=== PATIENT | male | born 1950 | race Caucasian/White ===

== ENCOUNTER → 2021-03-04 15:38 | Outpatient (CLI) | payer MEDICARE, OTHER, SELFPAY ==
--- NOTE | 2021-03-04 15:46 | CT_ITS ---
PROCEDURE: CT ABDOMEN PELVIS WO CON CLINICAL INDICATION: UMBILLICAL PAIN, NAUSEA, URINARY FREQUENCY COMPARISON: No exams were available for comparison TECHNIQUE: Axial images obtained with sagittal and coronal reformats. All CT scans at the facility use one or more dose reduction, viz: automated exposure control, ma/kV adjustment per patient size (including targeted exams where dose is matched to indication, i.e. head), or iterative reconstruction technique. FINDINGS: LOWER THORAX: There is mild thickening of the pericardium anteriorly consistent with small pericardial effusion at 8 mm in thickness. ABDOMEN & PELVIS: The liver, spleen, and adrenal glands have an unremarkable appearance. There is a 3 cm gas containing structure with an air-fluid level in the region the head of the pancreas inferiorly. This may represent a duodenal diverticulum. An abscess could have a similar appearance. There is no evidence of stranding of the peripancreatic fat. There is a gallstone present within the contracted gallbladder. There is severe bilateral hydronephrosis and hydroureter.. The urinary bladder is distended with several bladder diverticula noted. The prostate and seminal vesicles are enlarged. There does appear to be an extension of the prostate into the base of the urinary bladder. Prostate neoplasm should be considered. The prostate measures 8 cm in AP dimension and 5.8 cm transverse the. Soft tissue density is present in the base of the urinary bladder measuring 4 by 2 by 3.5 cm. This is contiguous with the enlarged prostate suspicious for neoplasm. No intestinal obstruction or free air is evident. No evidence of appendicitis. There is extensive colonic diverticulosis. No evidence of diverticulitis. No bony lytic or blastic changes. There is grade 1 spondylitic spondylolisthesis of L5 on S1. Prior vasectomy. IMPRESSION: 1. Enlarged prostate and seminal vesicles. Enlarged prostate is contiguous with a mass projecting into the base of the urinary bladder. These findings are consistent with prostate cancer with bladder invasion. Also suspected extension into the seminal vesicles. No blastic metastatic foci apparent. Alternatively, this could be related to severe benign prostatic hypertrophy with a bladder cancer adjacent to the enlarged prostate. 2. Bladder outlet obstruction with distended urinary bladder with multiple diverticula with severe bilateral hydroureteronephrosis. 3. Colonic diverticulosis. No evidence of diverticulitis. 4. Gas containing structure in the head of the pancreas which may be due to a duodenal diverticulum with an air-fluid level in the diverticulum. An abscess in the pancreatic head would be included in the differential diagnosis. There is no stranding however of the peripancreatic fat. 5. Cholelithiasis Dictated by: Dionicio Field MD 03/04/2021 16:33 Dionicio Field MD in [place] 03/04/2021 16:33
[2021-03-04 16:01] LABS: Basophils # 0.1 K/mm3 (0-0.2); Basophils % 0.7 % (0.1-2.0); Eosinophils # 0.1 K/mm3 (0.0-0.4); Eosinophils % 1.3 % (0.1-12.0); Hematocrit 34.4 % (42.0-52.0); Lymphocytes # 1.3 K/mm3 (0.7-4.5); Lymphocytes % 14.7 % (10-50); Mean Corpuscular Hemoglobin 33.2 pg (27.0-31.2); Mean Corpuscular Volume 94.6 fl (80-94); Mean Platelet Volume 9.2 fl (7.4-10.4); Monocytes # 0.5 K/mm3 (0.1-1.0); Monocytes % 5.3 % (1.7-9.3); Neutrophils # 6.7 K/mm3 (1.8-7.8); Platelet Count 223 K/mm3 (142-424); Red Blood Count 3.63 M/mm3 (4.60-6.20); Red Cell Distribution Width 12.7 % (11.5-17.5); White Blood Count 8.6 K/mm3 (4.8-10.8)
[2021-03-04 16:11] LABS: Alanine Aminotransferase 15 U/L (12-78); Albumin Level 4.1 g/dl (3.5-5.0); Albumin/Globulin Ratio 1.5 (1.1-1.8); Alkaline Phosphatase 67 U/L (38-126); Amylase 77 U/L (30-110); Anion Gap 11.9 mEq/L (5-15); Aspartate Amino Transferase 29 U/L (17-59); Bilirubin,Total 0.6 mg/dl (0.2-1.3); Blood Urea Nitrogen 53 mg/dl (9-20); Calcium 8.8 mg/dl (8.4-10.2); Carbon Dioxide 28 mmol/L (22.0-30.0); Chloride 106 mmol/L (98-107); Estimated Glomerular Filt Rate 22 ml/min (>60); GFR (African American) 26 ML/MIN (>60); Globulin 2.7 g/dL (1.3-3.2); Glucose 96 mg/dl (74-100); Potassium 4.9 mmoL/L (3.5-5.1); Sodium 141 mmol/L (136-145); Total Protein,Serum 6.8 g/dl (6.3-8.2)
[2021-03-04 18:16] LABS: Prostate Specific Ag, Diagnost 1.45 ng/ml (0.0-4.0)
== END ==
PROVIDERS: PCP Internal Medicine; Visit Provider Internal Medicine
DX: R32 Unspecified urinary incontinence (principal); N40.0 Benign prostatic hyperplasia without lower urinary tract symptoms
CPT/HCPCS: 74176; 80053; 82150; 84153; 85025

== ENCOUNTER 2021-03-04 17:05 | Outpatient (CLI) | payer MEDICARE, OTHER, SELFPAY | END 2021-03-04 17:46 | disposition home or self-care (01) | LOC: INF 17:11 | PROVIDERS: PCP Internal Medicine; Visit Provider Internal Medicine | DX: N40.1 Benign prostatic hyperplasia with lower urinary tract symptoms (principal); N32.0 Bladder-neck obstruction | CPT/HCPCS: 74176; 80053; 82150; 84153; 85025; G0463 ==

== ENCOUNTER → 2021-03-14 10:02 | Outpatient (CLI) | payer MEDICARE, OTHER, SELFPAY ==
[2021-03-14 10:11] LABS: Coronavirus 19, PCR Not Detected (NotDetected); Influenza A, PCR Not Detected (NotDetected); Influenza B, PCR Not Detected (NotDetected); MANUAL DIFFERENTIAL MANUAL DIFFERENTIAL (MANUAL DIFF)
[2021-03-14 10:28] LABS: Basophils # 0.1 K/mm3 (0-0.2); Basophils % 0.7 % (0.1-2.0); Eosinophils # 0.2 K/mm3 (0.0-0.4); Eosinophils % 2.5 % (0.1-12.0); Hematocrit 37.2 % (42.0-52.0); Lymphocytes # 1.5 K/mm3 (0.7-4.5); Lymphocytes % 18.2 % (10-50); Mean Corpuscular Hemoglobin 32.3 pg (27.0-31.2); Mean Corpuscular Volume 92.4 fl (80-94); Mean Platelet Volume 8.4 fl (7.4-10.4); Monocytes # 0.5 K/mm3 (0.1-1.0); Monocytes % 5.6 % (1.7-9.3); Neutrophils # 6.1 K/mm3 (1.8-7.8); Platelet Count 322 K/mm3 (142-424); Red Blood Count 4.02 M/mm3 (4.60-6.20); Red Cell Distribution Width 12.7 % (11.5-17.5); White Blood Count 8.3 K/mm3 (4.8-10.8)
[2021-03-14 10:32] LABS: Chloride 103 mmol/L (98-107)
[2021-03-14 10:33] LABS: Potassium 4.6 mmoL/L (3.5-5.1); Sodium 141 mmol/L (136-145)
[2021-03-14 10:35] LABS: Blood Urea Nitrogen 36 mg/dl (9-20); Estimated Glomerular Filt Rate 37 ml/min (>60); GFR (African American) 45 ML/MIN (>60)
[2021-03-14 10:36] LABS: Anion Gap 12.6 mEq/L (5-15); Calcium 10.3 mg/dl (8.4-10.2); Carbon Dioxide 30 mmol/L (22.0-30.0); Glucose 126 mg/dl (74-100)
[2021-03-14 10:56] LABS: Eosinophils % 3 % (0-3); Lymphocytes % 24 % (10-50); Monocytes % 10 % (2-9); Neutrophils % 63 % (42-76); Platelet Estimate Normal; RBC Morphology Normal; Total Cells Counted 100
== END ==
PROVIDERS: Visit Provider Urology
DX: N13.8 Other obstructive and reflux uropathy (principal); N40.1 Benign prostatic hyperplasia with lower urinary tract symptoms; R39.15 Urgency of urination
CPT/HCPCS: 36415; 80048; 85007; 85014; 85018; 85048; 85049; C9803; U0003; U0005

== ENCOUNTER 2021-03-14 10:19 | Day surgery (SDC) | payer MEDICARE, OTHER, SELFPAY ==
[2021-03-08 11:48] VITALS: BMI 26.9
[2021-03-14 11:00] VITALS: BP 155/71; PULSE 80; RESP 18; TEMP 36.7; O2SAT 99
--- NOTE | 2021-03-14 11:14 | SUR.PREOP ---
PT DOESN'T WANT IV STARTED UNTIL 12:00, DOESN'T LIKE IV'S AND SAYS DOESN'T UNDERSTAND WHY WE HAVE TO PUT THEM IN SO EARLY. PLAN TO START IV AT 12 PER PT WISHES.
--- NOTE | 2021-03-14 12:35 | HMH.ANESCL ---
[facility] Anesthesia Checklist - Patient Identification Patient Identification: Arm Band - Structural Data Admitted From: Home Planned Operative Procedure/s: Cystoscopy Consent for Planned Operative Procedure(s) Verified: Yes - NPO Status Verified Time NPO: 00:00 - Additional verifications Anesthesia Reactions: No Hx Blood Transfusions: No Blood Transfusion Reaction: No - Airway Assessment C-Spine Mobility Assessed: Yes TMJ Mobility Assessed: Yes Dentition: Good Dentition - Neurological Assessment Level of Consciousness: Awake Hx Seizures: No Numbness or tingling in extremities: No - Anesthesia Plan Anesthesia Risk discussed: Yes Anesthesia Plan: Verified ASA Class: II Anesthesia Type: MAC [facility] History I have reviewed the patient's past medical history: Yes Medical History: Reports:: Hypertension Denies:: Cancer, Diabetes Mellitus Type 1, Diabetes Mellitus Type 2, Internal Pacemaker, MRSA, Seizures *Have you ever received a pneumonia vaccine?: No *Have you received a flu vaccine this season?: No Other Medical History: Denies: Blood Transfusion Reaction Anesthesia experience/problems:: None Laterality Cases: Right: Arthroscopy Knee, Arthroscopy Shoulder Other Surgeries: Yes: No Previous Surgery, Colonoscopy. No: Pacemaker Amputation: No Fractures: No - *Social History Last grade of school completed: Advanced degree Smoking Status: Never smoker Alcohol Intake: current Alcohol Intake Frequency:: holidays/special occasions only Substance Use Type: denies use *Occupational Status:: retired Housing: house Household Members: none *Travel in the last 8 weeks: None Family Hx:: Other
[2021-03-14 13:21] VITALS: BP 80/50; PULSE 56; RESP 14; TEMP 36.6; O2SAT 98
[2021-03-14 13:30] VITALS: BP 92/55; PULSE 61; RESP 18; O2SAT 96
[2021-03-14 13:45] VITALS: BP 125/68; PULSE 64; RESP 18; O2SAT 97
[2021-03-14 14:05] VITALS: BP 136/62; PULSE 62; RESP 18; TEMP 36.2; O2SAT 96
--- NOTE | 2021-03-14 14:55 | SUR.OPER ---
indwelling catheter removed by RN and discarded prior to prep for procedure without complication, new 18 irish coude hogan catheter with leg bag inserted by MD at completion of procedure
--- NOTE | 2021-03-29 16:19 | P.OP_ITS ---
Date of procedure: 03/29/21 Pre-op Diagnosis:: BPH with urinary obstruction Post-op Diagnosis:: BPH with urinary obstruction Procedure performed:: Cystourethroscopy, transrectal ultrasound Surgeon:: Haris Taylor MD CAREER DISCOVERY TEACHER:: Cande Grace Anesthesia: MAC Estimated blood loss (mL): 0 Clinical Note:: 70-year-old white male with urinary retention. CT scan has shown a markedly enlarged prostate with bladder outlet obstructive changes as well as bilateral hydroureteronephrosis. Creatinine is 2.8 which has improved to 1.8 with catheter drainage. Operative findings:: Patient with trilobar hyperplasia and large median lobe. There are chronic bladder outlet obstructive changes such as severe trabeculation, cellules and bl adder diverticula. Operative note:: Patient taken to the operating room after informed consent was obtained. He was placed on the operating room table in the supine position and monitored anesthesia care was administered. His Baptiste catheter was removed. He was then placed into the dorsal lithotomy position and prepped and draped in the standard surgical fashion. Preoperative antibiotics and sequential compression devices were placed. The 22 [place] Island[place] cystoscope passed into the urethral meatus and into the prostatic urethra which showed trilobar hyperplasia. A very large median lobe was noted. The bladder was examined in a systematic fashion. There was severe trabeculation with cellule formation as well as a small diverticulum at the base of the bladder. The prostate bled easily. The ureteral orifices were obscured by the large median lobe. There was no evidence of bladder tumors. The cystoscope then removed and an 18 [place] Islander Baptiste catheter was placed. The transrectal ultrasound probe was then placed into the rectum and the prostate was measured at 60 cm?. The probe then removed. Patient tolerated the procedure well and there were no complications. Condition: stable Disposition: same day Specimens:: None Complications:: None
== END 2021-03-14 14:10 | disposition home or self-care (01) ==
LOC: OR 10:21
PROVIDERS: PCP Internal Medicine; Visit Provider Urology
PROC: 0TJB8ZZ Inspection of Bladder, Via Natural or Artificial Opening Endoscopic (ICD-10-PCS; CPT 52000; principal; 2021-03-14 12:30)
DX: N40.1 Benign prostatic hyperplasia with lower urinary tract symptoms (principal); N32.3 Diverticulum of bladder; I10 Essential (primary) hypertension; Z79.899 Other long term (current) drug therapy
CPT/HCPCS: 52000; 76872; 36415; 80048; 85007; 85014; 85018; 85048; 85049; 96374; C9803; U0003; U0005

== ENCOUNTER 2021-03-21 14:10 | Observation (INO) | payer MEDICARE, OTHER, SELFPAY ==
--- NOTE | 2021-03-14 17:03 | HMH.OPNOTE ---
Date of procedure: 03/14/21 Pre-op Diagnosis:: BPH with urinary obstruction Post-op Diagnosis:: BPH with urinary obstruction Procedure performed:: Cystourethroscopy, transrectal ultrasound Surgeon:: Haris Taylor MD CRM FUNCTIONAL ANALYST:: Cande Grace Anesthesia: MAC Estimated blood loss (mL): 0 Clinical Note:: 70-year-old white male with urinary retention. CT scan has shown markedly enlarged prostate with bladder outlet obstructive changes. Lab work show a creatinine of 2.8 which has improved to 1.8 with catheter drainage. Operative findings:: Patient with trilobar hyperplasia and large median lobe. There are chronic bladder outlet obstructive changes trabeculation bladder diverticula present. Operative note:: Patient taken to the operating room after informed consent was obtained. Was placed on the operating table in the supine position and monitored anesthesia care was administered. His current Baptiste catheter was removed. Then placed into the dorsal lithotomy position and prepped and draped in the standard surgical fashion. Preoperative antibiotics and sequential compression devices placed. 22 Indonesian cystoscope passed into the urethral meatus into the prostatic urethra which showed trilobar hyperplasia. Large median lobe was noted. Bladder was examined in a systematic fashion. There was severe trabeculation with cellule formation as well as a small diverticulum at the base of the bladder. There was easy bleeding from the prostatic urethra. The ureteral orifices were obscured by the large median lobe. There is no evidence of bladder tumors. Scope then removed and an 18 Indonesian Baptiste catheter was replaced. The transrectal ultrasound probe was then placed into the rectum the prostate was measured at 60 cm?. The probe then removed. Patient tolerated procedure well there are no complications. We discussed the findings after he recovered and we will schedule a transurethral resection of prostate at his earliest convenience. Condition: stable Disposition: same day Specimens:: None Complications:: None
[2021-03-17 14:33] VITALS: BMI 27.6
[2021-03-21] VITALS (20 sets, daily range): BP systolic 129–165; BP diastolic 65–88; PULSE 62–79; RESP 12–18; TEMP 35.8–36.9; O2SAT 93–99; BMI 26.7
[2021-03-21 08:48] LABS: Coronavirus 19, PCR Not Detected (NotDetected); Influenza A, PCR Not Detected (NotDetected); Influenza B, PCR Not Detected (NotDetected)
[2021-03-21 09:41] LABS: Basophils # 0.1 K/mm3 (0-0.2); Basophils % 0.7 % (0.1-2.0); Eosinophils # 0.2 K/mm3 (0.0-0.4); Eosinophils % 2.3 % (0.1-12.0); Hematocrit 35.5 % (42.0-52.0); Hemoglobin 12.3 g/dL (14.1-18.0); Lymphocytes # 1.1 K/mm3 (0.7-4.5); Lymphocytes % 12.1 % (10-50); Mean Corpuscular HGB Conc 34.7 g/dL (31.8-35.4); Mean Corpuscular Hemoglobin 32.2 pg (27.0-31.2); Mean Corpuscular Volume 92.9 fl (80-94); Mean Platelet Volume 8.3 fl (7.4-10.4); Monocytes # 0.4 K/mm3 (0.1-1.0); Monocytes % 4.6 % (1.7-9.3); Neutrophils # 7.4 K/mm3 (1.8-7.8); Neutrophils % 80.3 % (37.0-80.0); Platelet Count 269 K/mm3 (142-424); Red Blood Count 3.82 M/mm3 (4.60-6.20); Red Cell Distribution Width 12.7 % (11.5-17.5); White Blood Count 9.2 K/mm3 (4.8-10.8)
[2021-03-21 09:46] LABS: Chloride 104 mmol/L (98-107)
--- NOTE | 2021-03-21 09:46 | P.PN_ITS ---
[facility] Anesthesia Checklist - Patient Identification Patient Identification: Arm Band, Verbal (Name & ) - Structural Data Admitted From: Home Planned Operative Procedure/s: TURP Consent for Planned Operative Procedure(s) Verified: Yes Verified Documents: Surgical Consent - NPO Status Verified Time NPO: 00:00 - Chart Verification Results Verified: CBC, BMP - Additional verifications Anesthesia Reactions: No Hx Blood Transfusions: No Blood Transfusion Reaction: No - Cardiovascular Assessment Heart Sounds: S1 & S2 Pulse Rhythm: Regular - Airway Assessment C-Spine Mobility Assessed: Yes TMJ Mobility Assessed: Yes Dentition: Good Dentition - Neurological Assessment Level of Consciousness: Awake, Alert, Appropriate - Anesthesia Plan Anesthesia Risk discussed: Yes ASA Class: II Anesthesia Type: General [facility] History Medical History: Reports:: BPH, Hypertension Denies:: Cancer, Diabetes Mellitus Type 1, Diabetes Mellitus Type 2, Internal Pacemaker, MRSA, Seizures *Have you ever received a pneumonia vaccine?: Yes *Have you received a flu vaccine this season?: Yes Other Medical History: Denies: Blood Transfusion Reaction Anesthesia experience/problems:: none Laterality Cases: Right: Arthroscopy Knee, Arthroscopy Shoulder Other Surgeries: Yes: No Previous Surgery, Colonoscopy. No: Pacemaker Amputation: No Fractures: No - *Social History Last grade of school completed: Advanced degree Smoking Status: Never smoker Alcohol Intake: current Alcohol Intake Frequency:: holidays/special occasions only Substance Use Type: denies use *Occupational Status:: retired Housing: house Household Members: none *Travel in the last 8 weeks: None Family Hx:: No significant family history
[2021-03-21 09:47] LABS: Potassium 4.3 mmoL/L (3.5-5.1); Sodium 141 mmol/L (136-145)
[2021-03-21 09:50] LABS: Anion Gap 12.3 mEq/L (5-15); Blood Urea Nitrogen 25 mg/dl (9-20); Calcium 9.3 mg/dl (8.4-10.2); Carbon Dioxide 29 mmol/L (22.0-30.0); Creatinine Clearance Estimated 48 mL/min (50-200); Estimated Glomerular Filt Rate 43 ml/min (>60); GFR (African American) 52 ML/MIN (>60); Glucose 112 mg/dl (74-100)
--- NOTE | 2021-03-21 13:08 | P.PN_ITS ---
[facility] Anesthesia Record Part I Intake, IV Amount: 1,000 Estimated blood loss (mL): 50 Urine output (mL): 0 Blood Pressure: 131/68 SaO2: 97 Pulse Rate: 73 Respiratory Rate: 17 Temperature: 98.5 F Patient is:: Drowsy Stable to PACU at:: 13:05
--- NOTE | 2021-03-21 14:11 | SUR.PHASEI ---
1354- [facility]6- pt left in stable condition at this time.
--- NOTE | 2021-03-21 14:26 | HMH.PHAVTE ---
[facility] Pharmacy VTE Monitoring - Patient Demographics Admission date: 03/21/21 Report Date: 03/21/21 Time: 14:26 Allergies/Adverse Reactions: Patient Allergies No Known Allergies Allergy (Unverified 03/21/21 13:16) Height: 1.7 m Weight: 79.832 kg - VTE Risk Labs: VTE Related Lab Results Hgb 12.3 g/dL (14.1-18.0) L 03/21/21 09:25 Hct 35.5 % (42.0-52.0) L 03/21/21 09:25 Plt Count 269 K/mm3 (142-424) 03/21/21 09:25 BUN 25 mg/dl (9-20) H 03/21/21 09:25 Creatinine 1.60 mg/dl (0.66-1.25) H 03/21/21 09:25 Estimated Creat Clear 48 mL/min (50-200) 03/21/21 09:25 - Prophylaxis VTE Prophylaxis Ordered?: Yes Types of VTE Prophylaxis: IPCS Thigh High Location of Applied Device: Bilateral Lower Extremeties
--- NOTE | 2021-03-21 14:26 | HMH.PHAINT ---
MEDICATION RECONCILIATION COMPLETED ON PATIENT USING EXTERNAL FILL HISTORY FROM PHARMACY. -SHAD BUSBY, DEOND
--- NOTE | 2021-03-21 16:10 | P.OP_ITS ---
Date of procedure: 03/21/21 Pre-op Diagnosis:: BPH with obstruction Post-op Diagnosis:: BPH with obstruction Procedure performed:: Transurethral resection of prostate Surgeon:: Haris Taylor MD COMMERCIAL LINES ACCOUNT MANAGER:: Other (leonarda s) Anesthesia: LMA Estimated blood loss (mL): 5 Clinical Note:: 70-year-old white male with recent urinary retention as a large prostate by CT evaluation as well as bilateral hydroureteronephrosis and renal failure due to chronic bladder outlet obstruction. We have discussed treatment options and patient presents for transurethral section of prostate today. Operative findings:: Patient with concentric prostate tissue extending into the bladder. There was a large median lobe as well as a large anterior portion of prostate tissue that protruded into the bladder lumen. There was also trilobar hyperplasia. Operative note:: Patient taken to the operating room after informed consent was obtained. He was placed on the operating room table in the supine position and general anesthesia administered. Preoperative antibiotics and sequential compression devices were placed. He was placed into the dorsal lithotomy position and prepped and draped in the standard surgical fashion. The 22 [place] passed into the urethra and the bladder examined in a systematic fashion. There was severe trabeculation with cellule formation and small diverticula present. The ureteral orifices were obscured by the large median lobe. There was a large median lobe as well as a large anterior lobe prostate protruding into the bladder. This was also true of the right and left side of the prostatic urethra and that it extended into the bladder. The cystoscope removed and our 28 [place] resectoscope sheath passed into the urethra with use of the obturator. The obturator then removed and the cystoscope passed through the sheath and resection began at the bladder neck resecting the large median lobe as well as the right and left prostatic lobes that extended into the bladder and the anterior portion of the prostate that extended into the bladder. We then turned our attention to the floor the bladder and the floor the bladder was resected back to the verumontanum. This allowed us better flow in the left side the prostate was then resected in a counterclockwise fashion back to the verumontanum. The right side the prostate was then resected in a clockwise fashion back to the VA room. Anterior prostatic tissue was resected as well back to the VA removed and the apical tissue was resected as the last stage of the TURP. Hemostasis achieved and all the prostatic chips were evacuated. A 22 [place] three-way catheter passed into the bladder with use of a catheter guide. 30 cc were placed into the balloon and continuous bladder irrigation instituted. The bladder was irrigated and there was no significant bleeding. Catheter was placed to traction on the left leg and patient transported to the recovery in stable condition. Condition: stable Disposition: PACU Specimens:: Prostate tissue Complications:: None
--- NOTE | 2021-03-21 18:59 | PC.NURSE ---
Have paged Dr. Taylor health education coordinator at this time to request pain med for pt. Pt has had norco per mar but states pain is increasing and it feels as if he needs to urinate. CBI continues.
--- NOTE | 2021-03-21 19:04 | PC.NURSE ---
Received order for belladonna suppository for bladder spasms.
[2021-03-22] VITALS: BP 125/69; PULSE 66; RESP 16; TEMP 36.6; O2SAT 96
[2021-03-22 04:00] VITALS: BP 124/68; PULSE 66; RESP 16; TEMP 36.7; O2SAT 97
--- NOTE | 2021-03-22 05:06 | PC.NURSE ---
Pt is A/O x4. CBI continues with light pink draining per hogan. Pt voiced x3 of pain, admin meds per MAR with relief. Pt's appetite has been well t/o shift with intake of cookies, jello, and soft drinks. Pt is eager to go home. SCDS remain in place on BLE. Call traore within reach.
[2021-03-22 05:11] VITALS: BMI 26.6
[2021-03-22 06:43] LABS: Basophils % 0.3 % (0.1-2.0); Eosinophils # 0.1 K/mm3 (0.0-0.4); Eosinophils % 1.6 % (0.1-12.0); Hematocrit 31.3 % (42.0-52.0); Lymphocytes # 1.2 K/mm3 (0.7-4.5); Lymphocytes % 13.6 % (10-50); Mean Corpuscular HGB Conc 33.7 g/dL (31.8-35.4); Mean Corpuscular Hemoglobin 31.8 pg (27.0-31.2); Mean Corpuscular Volume 94.3 fl (80-94); Mean Platelet Volume 8.9 fl (7.4-10.4); Monocytes # 0.5 K/mm3 (0.1-1.0); Monocytes % 5.5 % (1.7-9.3); Neutrophils % 78.9 % (37.0-80.0); Platelet Count 217 K/mm3 (142-424); Red Blood Count 3.32 M/mm3 (4.60-6.20); White Blood Count 8.9 K/mm3 (4.8-10.8)
[2021-03-22 07:09] LABS: Anion Gap 4.9 mEq/L (5-15); Blood Urea Nitrogen 20 mg/dl (9-20); Calcium 8.2 mg/dl (8.4-10.2); Carbon Dioxide 29 mmol/L (22.0-30.0); Chloride 105 mmol/L (98-107); Creatinine Clearance Estimated 48 mL/min (50-200); Estimated Glomerular Filt Rate 43 ml/min (>60); GFR (African American) 52 ML/MIN (>60); Glucose 107 mg/dl (74-100); Potassium 3.9 mmoL/L (3.5-5.1); Sodium 135 mmol/L (136-145)
[2021-03-22 07:12] VITALS: BP 131/75; PULSE 60; TEMP 36.6; O2SAT 95
[2021-03-22 07:17] LABS: Hemoglobin 10.6 g/dL (14.1-18.0)
[2021-03-22 11:57] VITALS: BP 144/74; PULSE 63; RESP 14; TEMP 36.6; O2SAT 98
--- NOTE | 2021-03-22 12:34 | P.PN_ITS ---
[facility] Anesthesia Record Part II Discharge Time: 13:55 Destination: 2nd floor PACU nurse assessment reviewed?: Yes Patient Condition:: Good Anesthesia Complications:: None none Swallowing reflex intact?: Yes Cyanosis?: No Blood Pressure: 152/80 Pulse Rate: 72 Temperature: 97.2 F Mental Status: Alert & Oriented Pain level:: 0 Nausea and/or vomitting:: None Intake, IV Amount: 0
[2021-03-22 12:36] VITALS: BP 152/80; PULSE 72; TEMP 36.2
--- NOTE | 2021-03-22 12:58 | HMH.HP ---
*Admission Date: 03/21/21 *Chief complaint: BPH with obstruction *History of present illness: Patient is a 70-year-old white male with recent urinary retention. CT scan has shown prostate enlargement with bladder diverticula as well as bilateral hydroureteronephrosis. Patient's creatinine was noted to be elevated at 2.8 prior to his Baptiste catheter. Patient has been worked up with cystoscopy and found to have trilobar hyperplasia with very large median lobe. His urinary retention has been managed with a Baptiste catheter for the last couple of weeks. His creatinine has trended down to 1.6. He presents for transurethral resection of prostate today. [facility] History Medical History: Reports:: BPH, Hypertension Denies:: Cancer, Diabetes Mellitus Type 1, Diabetes Mellitus Type 2, Internal Pacemaker, MRSA, Seizures *Have you ever received a pneumonia vaccine?: No *Have you received a flu vaccine this season?: No Other Medical History: Denies: Blood Transfusion Reaction Anesthesia experience/problems:: none Laterality Cases: Right: Arthroscopy Knee, Arthroscopy Shoulder Other Surgeries: Yes: No Previous Surgery, Colonoscopy. No: Pacemaker Amputation: No Fractures: No - *Social History Last grade of school completed: Advanced degree Smoking Status: Never smoker Alcohol Intake: never Alcohol Intake Frequency:: holidays/special occasions only Substance Use Type: denies use *Occupational Status:: retired Housing: house Household Members: none *Travel in the last 8 weeks: None Family Hx:: No significant family history Review of Systems - Review of Systems Review of systems:: pertinent systems reviewed and negative unless documented below Meds Home Medications Medication Instructions Recorded Confirmed Type finasteride 5 mg tablet 5 mg PO DAILY 03/07/21 03/21/21 History lisinopril 10 1 tab PO DAILY 03/07/21 03/22/21 History mg-hydrochlorothiazide 12.5 mg tablet tamsulosin 0.4 mg capsule 0.4 mg PO DAILY 03/07/21 03/21/21 History Aspirin [Aspirin 81mg EC Tab] 81 mg PO DAILY 03/08/21 03/21/21 History Allergies Allergy/AdvReac Type Severity Reaction Status Date / Time No Known Allergies Allergy Unverified 03/21/21 13:16 Exam Vital signs and Labs for Last 24 Hours: Temp Pulse Resp BP Pulse Ox 97.2 F L 72 14 152/80 H 98 03/22/21 12:36 03/22/21 12:36 03/22/21 11:57 03/22/21 12:36 03/22/21 11:57 Laboratory Results - last 24 hr 03/22/21 05:40: WBC 8.9, RBC 3.32 L, Hgb 10.6 L D, Hct 31.3 L, MCV 94.3 H, MCH 31.8 H, MCHC 33.7, RDW 13.0, Plt Count 217, MPV 8.9, Neut % (Auto) 78.9, Lymph % (Auto) 13.6, [place] % (Auto) 5.5, Eos % (Auto) 1.6, Baso % (Auto) 0.3, Neut # (Auto) 7.0, Lymph # (Auto) 1.2, [place] # (Auto) 0.5, Eos # (Auto) 0.1, Baso # (Auto) 0.0 03/22/21 05:40: Sodium 135 L, Potassium 3.9, Chloride 105, Carbon Dioxide 29, Anion Gap 4.9 L, BUN 20, Creatinine 1.60 H, Estimated Creat Clear 48, Estimated GFR 43 L, Est GFR ( Amer) 52 L, Glucose 107 H, Calcium 8.2 L I & O for Last 24 hours: Intake & Output 03/19/21 03/20/21 03/21/21 03/22/21 23:59 23:59 23:59 23:59 Intake Total 1060 / 1060 1580 / 1580 Output Total 5100 / 5100 6600 / 6600 Balance -4040 / -4040 -5020 / -5020 Weight 79.832 kg 79.832 kg - Constitutional no acute distress - *Routine HEENT Exam Head: Present: normocephalic Eye: Present: EOMI, PERRL ENT: Present: mucous membranes moist - *Routine Neck Exam Present: supple. Absent: lymphadenopathy - *Routine Respiratory Exam Present: CTA bilaterally - *Routine Cardiovascular Exam Present: RRR - *Routine Abdominal Exam Present: soft, normoactive bowel sounds. Absent: tenderness - *Routine Rectal Exam Rectal:: deferred - *Routine Genitalia Exam Genitalia:: deferred - *Routine Extremities Exam Absent: cyanosis, clubbing, edema - *Routine Skin Exam Present: warm. Absent: rash - *Routine Neurological Exam Present: alert, oriented X3 Assessmen
--- NOTE | 2021-03-22 13:02 | P.PN_ITS ---
Internal Medicine - PN: Subj *Date: 03/22/21 *Time: 13:02 Interval history: Postop day 1 status post TURP. His urine is blood-tinged on minimal CBI. He does state some perineal discomfort. He is tolerating diet and is afebrile. Exam Vital signs and Labs for Last 24 Hours: Temp Pulse Resp BP Pulse Ox 97.2 F L 72 14 152/80 H 98 03/22/21 12:36 03/22/21 12:36 03/22/21 11:57 03/22/21 12:36 03/22/21 11:57 Laboratory Results - last 24 hr 03/22/21 05:40: WBC 8.9, RBC 3.32 L, Hgb 10.6 L D, Hct 31.3 L, MCV 94.3 H, MCH 31.8 H, MCHC 33.7, RDW 13.0, Plt Count 217, MPV 8.9, Neut % (Auto) 78.9, Lymph % (Auto) 13.6, [place] % (Auto) 5.5, Eos % (Auto) 1.6, Baso % (Auto) 0.3, Neut # (Au to) 7.0, Lymph # (Auto) 1.2, [place] # (Auto) 0.5, Eos # (Auto) 0.1, Baso # (Auto) 0.0 03/22/21 05:40: Sodium 135 L, Potassium 3.9, Chloride 105, Carbon Dioxide 29, Anion Gap 4.9 L, BUN 20, Creatinine 1.60 H, Estimated Creat Clear 48, Estimated GFR 43 L, Est GFR ( Amer) 52 L, Glucose 107 H, Calcium 8.2 L I & O for Last 24 hours: Intake & Output 03/19/21 03/20/21 03/21/21 03/22/21 23:59 23:59 23:59 23:59 Intake Total 1060 / 1060 1580 / 1580 Output Total 5100 / 5100 6600 / 6600 Balance -4040 / -4040 -5020 / -5020 Weight 79.832 kg 79.832 kg - Constitutional no acute distress - *Routine HEENT Exam Head: Present: normocephalic Eye: Present: EOMI, PERRL ENT: Present: mucous membranes moist - *Routine Neck Exam Present: supple. Absent: lymphadenopathy - *Routine Respiratory Exam Absent: accessory muscle use - *Routine Cardiovascular Exam Absent: JVD - *Routine Abdominal Exam Present: soft. Absent: tenderness - *Routine Extremities Exam Absent: cyanosis, clubbing, edema - *Routine Skin Exam Present: warm. Absent: rash - *Routine Neurological Exam Present: alert, oriented X3 Assessment and Plan (1) BPH with obstruction/lower urinary tract symptoms Status: Acute Category: Medical Code(s): N40.1 - Benign prostatic hyperplasia with lower urinary tract symptoms; N13.8 - Other obstructive and reflux uropathy Postop day 1 status post TURP. His urine is blood-tinged off of continuous bladder irrigation he has been ambulating in the halls without difficulty. He is tolerating a diet. We discussed discharge plans and restriction of any strenuous activities. He will be discharged home with his Baptiste catheter and they will come back in 2 days for a voiding trial. Prescriptions for cefdinir and Colace given at discharge. He is also to push liberal amounts of fluids.
--- NOTE | 2021-03-22 13:31 | PC.NURSE ---
Called and spoke with Barb @ this time r/t med req not being complete.
== END 2021-03-22 14:30 | disposition home or self-care (01) ==
LOC: OR 14:10 → 2ND 14:10
PROVIDERS: Admitting Provider Urology; PCP Internal Medicine; Visit Provider Urology
PROC: 0VT08ZZ Resection of Prostate, Via Natural or Artificial Opening Endoscopic (ICD-10-PCS; CPT 52601; principal; 2021-03-21 10:30)
DX: N40.1 Benign prostatic hyperplasia with lower urinary tract symptoms (principal); N13.8 Other obstructive and reflux uropathy; N32.3 Diverticulum of bladder; R33.8 Other retention of urine; N13.39 Other hydronephrosis; N32.0 Bladder-neck obstruction; I10 Essential (primary) hypertension; Z20.822 Contact with and (suspected) exposure to COVID-19
CPT/HCPCS: 52601; G0378; 80048; 85025; 88305; 96374; C9803; J2405; U0003; U0005

== ENCOUNTER 2021-03-30 16:46 | Emergency (ER) | payer MEDICARE, OTHER, SELFPAY ==
[2021-03-30 17:20] VITALS: BP 161/98; PULSE 87; RESP 21; TEMP 36.8; O2SAT 97; BMI 26.3
[2021-03-30 17:22] LABS: Apearance,Urine Cloudy (Clear); Color,Urine Dark Yellow (Yellow)
[2021-03-30 17:23] LABS: Bilirubin,Urine Negative (Negative); Blood, Urine 3+ (Negative); Glucose,Urine (UA) Negative (Negative); Ketones,Urine Negative (Negative); Protein,Urine 3+ (Negative); UTC Leukocyte Esterase,Urine 2+ (Negative); UTC Nitrate,Urine Positive (Negative); Urobilinogen,Urine 0.2 EU/dl (0.2)
--- NOTE | 2021-03-30 17:46 | HMH.EDUTC ---
[facility] [facility] [place] Clinical Impression: UTI (urinary tract infection) Qualifiers: Urinary tract infection type: site unspecified Hematuria presence: with hematuria Qualified Code(s): N39.0 - Urinary tract infection, site not specified Disposition: Home, Self-Care Condition on Discharge: Good Instructions: Urinary Tract Infection, DI for Urinary Tract Infection (UTI), Ciprofloxacin Additional Instructions: *Increase fluids. Water not Soda or Tea *Start antibiotic immediately and be sure to take as ordered for the FULL length of time although you should start to see improvement over the next 48 hours *Pyridium as needed Remember this medication will turn your urine [place]. This is normal but it will stain what ever it gets on *You should not use Pyridium for more than 48 hours. If so , follow up with your primary physician to review urine culture and ensure that antibiotic is adequate for infection *Be SURE to follow up anytime for new or worsening symptoms with your family doctor. AND in 48 hours for urine culture results with your family doctor, if you do not have a doctor then you may call back to the [facility] for urine culture results and further treatment. We do recommend that you choose and establish care with a Primary Care Physician. AND follow up with them in 10-14 days to repeat UA to ensure infection is resolved and blood no longer present *Be sure to let your PCP know that we sent urine cultures from the [facility] so they can follow up to ensure that you area the on the correct antibiotic Call your doctor office and make appointment for 48 hours (2 days from today) to follow up and get the results of your urine culture and further treatment Prescriptions: Ciprofloxacin HCl [Cipro 500mg Tab] 500 mg PO BID 10 Days #20 tab Transmission Status: Received by [id number] Phenazopyridine HCl [Pyridium 200mg Tablet] 200 pow PO TID #6 tab Transmission Status: Received by [id number] Referrals: Alfredo Samuels [Primary Care Provider] - As needed Time of Disposition: 18:13 Medical Decision Making - Pankaj Inquiry Pt receiving controlled substance: No Pankaj was queried for this patient: No Vital Signs: 03/30/21 17:20 03/30/21 18:15 Temperature 98.2 F 98.2 F Temperature Source Oral Pulse Rate 87 Pulse Rate [Right Brachial] 87 Respiratory Rate 21 21 Blood Pressure 161/98 H Blood Pressure [Right Arm] 161/98 H Blood Pressure Mean [Right Arm] 119 Blood Pressure Source [Right Arm] Automatic Cuff Blood Pressure Position [Right Arm] Sitting 02 Sat by Pulse Oximetry 97 Oxygen Delivery Method Room Air - Lab Data Lab results reviewed: Yes: I reviewed the patient's lab results. Lab Results 03/30/21 17:17: Urine Color Dark yellow, Urine Appearance Cloudy, Urine pH 6.0, Ur Specific [place] 1.020, Urine Protein 3+, Urine Glucose (UA) Negative, Urine Ketones Negative, Urine Blood 3+, Urine Nitrate Positive A, Urine Bilirubin Negative, Urine Urobilinogen 0.2, Ur Leukocyte Esterase 2+ A Orders (Tests/Meds): ED MEDICATIONS Discontinued Medications Generic Name Dose Route Start Last Admin Trade Name Felipeq PRN Reason Stop Dose Admin Levofloxacin 500 mg 03/30/21 18:09 03/30/21 18:15 Levofloxacin 500mg Tab PO 03/30/21 18:10 500 mg ONCE ONE Administration Phenazopyridine HCl 200 mg 03/30/21 18:14 03/30/21 18:15 Phenazopyridine 200mg Tablet PO 03/30/21 18:15 200 mg ONCE ONE Administration ORDERS Category Date Time Status Urine Culture Stat Micro 03/30/21 17:00 Received Medical Decision Narrative: Medication discussed with pharmacy and looked at most recent labs [facility] still advised Cipro 500mg BID x 10 days and follow up with Urology [facility] [place] - General Stated complaint: possible UTI Time Seen by Provider: 03/30/21 17:46 Mode of Arrival: Ambulatory Source of Information: Patient Limitations: No Limitations Description of Symptoms (Re
[2021-03-30 18:15] VITALS: BP 161/98; PULSE 87; RESP 21; TEMP 36.8; O2SAT 97
== END 2021-03-30 18:21 | disposition home or self-care (01) ==
PROVIDERS: Emergency Provider Nurse Practitioner; PCP Internal Medicine
DX: N30.01 Acute cystitis with hematuria (principal)
CPT/HCPCS: G0463; 81003; 87086; 87088; 87186; 99202

== ENCOUNTER → 2021-10-06 13:27 | Outpatient (CLI) | payer MEDICARE, SELFPAY ==
--- NOTE | 2021-10-06 13:29 | CA_ITS ---
APPROVED REPORT EXAM: Comprehensive 2D, Doppler, and color-flow Echocardiogram Pharmacy Technologist: Suki Monahan RVT Ht: 5 ft 8 in Wt: 161lbs BSA: 1.86 BP: 122/67 mmHg Indications: SOA,HTN,PRE-OP 2D Dimensions LVOT 2.41 cm (M/F) 1.5-2.5 LA Volume 46.40 mL LA Volume Index 24.94 mL/m2 (M/F) 16-34 M-Mode Dimensions RVDd 2.62 cm (0.9-2.6) LA Diam 4.66 cm (1.9-4.0) LVDd 5.11 cm (3.5-5.7) Ao Diam 3.39 cm (2.0-3.7) LVDs 3.26 cm (3.5-5.7) IVSd 0.80 cm (0.6-1.1) PWd 1.09 cm (0.6-1.1) EF (Teich) 65.60% FS 36.20% EDV (Teich) 124.40 mL TAPSE 2.04 (<1.7) ESV (Teich) 42.80 mL LV Diastology E Decel Time 150.00 (160-240 msec) E/A Ratio 1.0 MED E' 9.10 (< 7 cm/sec) E'/MED E' Ratio 7.97 (>14) LAT E' 12.70 (<10 cm/sec) E/LAT E' Ratio 5.71 (>14) Aortic Valve AO Peak GR. 4.50 mmHg Mitral Valve MV E Max Thang. 73.00 (40-130 cm/s) MV A Velocity 74.00 (40-130 cm/s) E/A Ratio 0.98 MV Decel. Time 150.00 (160-240 ms) MV PHT 44.00 ms Pulmonary Valve PV Peak Velocity 77.00 (50-150 cm/s) Tricuspid Valve TR P. Velocity 229.00 cm/s RAP Estimate 10.00 mmHg RVSP 31.00 mmHg Left Ventricle Left atrium is mildly enlarged, left ventricle is normal size mild concentric left ventricular hypertrophy, estimated ejection fraction 55% with no regional wall motion abnormality, grade 1 diastolic dysfunction seen without tissue Doppler evidence of raise left atrial pressure. Right Ventricle Right atrium and right ventricle are normal size and contractility. Aortic Valve Aortic valve is thickened and calcified without aortic stenosis aortic insufficiency. Mitral Valve Mitral valve leaflets are minimally thickened, mild mitral regurgitation. Tricuspid Valve Tricuspid grossly normal, there is mild tricuspid regurgitation, tricuspid regurgitation jet velocity is inadequate for calculation of the right ventricular systolic pressure. Pulmonic Valve Pulmonic valve is poorly visualized. Great Vessels Aortic root is normal size. Inferior vena cava is normal size with normal inspiratory collapse. Pericardium No significant pericardial effusion noted. Conclusion 1. Mildly enlarged left atrium, normal left ventricular size, mild concentric left ventricular hypertrophy, estimated ejection fraction 55% with no regional wall motion abnormality, grade 1 diastolic dysfunction seen without tissue Doppler evidence of raise left atrial pressure. 2. Mild mitral and tricuspid regurgitation. 3. No significant pericardial effusion. 4. Inferior vena cava is normal size with normal inspiratory collapse. Electronically signed by : Tez Guy MD 10/07/2021 15:10:45
== END ==
PROVIDERS: PCP Internal Medicine; Visit Provider Nurse Practitioner Family
DX: R06.02 Shortness of breath (principal)
CPT/HCPCS: 93306

== ENCOUNTER → 2021-11-09 17:25 | Outpatient (CLI) | payer MEDICARE, SELFPAY ==
[2021-11-09 18:20] LABS: Basophils # 0.1 K/mm3 (0-0.2); Eosinophils # 0.1 K/mm3 (0.0-0.4); Eosinophils % 2.1 % (0.1-12.0); Hemoglobin 13.8 g/dL (14.1-18.0); Lymphocytes # 1.6 K/mm3 (0.7-4.5); Lymphocytes % 26.7 % (10-50); Mean Corpuscular HGB Conc 31.4 g/dL (31.8-35.4); Mean Corpuscular Hemoglobin 31.4 pg (27.0-31.2); Mean Corpuscular Volume 100.3 fl (80-94); Mean Platelet Volume 9.8 fl (7.4-10.4); Monocytes # 0.5 K/mm3 (0.1-1.0); Monocytes % 7.7 % (1.7-9.3); Neutrophils # 3.8 K/mm3 (1.8-7.8); Neutrophils % 62.5 % (37.0-80.0); Platelet Count 221 K/mm3 (142-424); Red Blood Count 4.39 M/mm3 (4.60-6.20); Red Cell Distribution Width 13.5 % (11.5-17.5); White Blood Count 6.1 K/mm3 (4.8-10.8)
[2021-11-09 18:27] LABS: Activated Partial Thrombo Time 29.8 seconds (22.8-30.6); Prothrombin Time 11.3 seconds (10.1-12.5)
[2021-11-09 19:00] LABS: Anion Gap 12.4 mEq/L (5-15); Blood Urea Nitrogen 44 mg/dl (9-20); Calcium 9.1 mg/dl (8.4-10.2); Carbon Dioxide 27 mmol/L (22.0-30.0); Chloride 105 mmol/L (98-107); Estimated Glomerular Filt Rate 40 ml/min (>60); GFR (African American) 48 ML/MIN (>60); Glucose 90 mg/dl (74-100); Potassium 4.4 mmoL/L (3.5-5.1); Sodium 140 mmol/L (136-145)
== END ==
PROVIDERS: PCP Internal Medicine; Visit Provider Internal Medicine
DX: Z01.818 Encounter for other preprocedural examination (principal); I10 Essential (primary) hypertension; M17.11 Unilateral primary osteoarthritis, right knee; N40.1 Benign prostatic hyperplasia with lower urinary tract symptoms; Z68.25 Body mass index [BMI] 25.0-25.9, adult; Z51.81 Encounter for therapeutic drug level monitoring
CPT/HCPCS: 80048; 85025; 85610; 85730

== ENCOUNTER → 2021-12-30 13:46 | Outpatient (CLI) | payer MEDICARE, SELFPAY ==
--- NOTE | 2021-12-30 13:49 | US_ITS ---
FINAL REPORT TECHNIQUE: Sonographic images were obtained of the retroperitoneum. CLINICAL HISTORY: ELEVATED KIDNEY FUNCTION FINDINGS: The right kidney measures 10.0 cm. The left kidney measures 9.9 cm. A left renal cyst measures 1 cm. There is mild increased renal echogenicity probably due to mild medical renal disease. The spleen measures 10.7 cm. IMPRESSION: Left renal cyst. Mild increased renal echogenicity that may be due to mild medical renal disease. Reviewed, Interpreted and Dictated by Joaquin Steel MD Transcribed by Mariano Miguel Authenticated and [facility]
--- NOTE | 2021-12-30 13:49 | US_ITS ---
FINAL REPORT TECHNIQUE: Sonographic images were obtained of the urinary bladder. CLINICAL HISTORY: creatnine elevated, had prostate shaved last year FINDINGS: Prevoid bladder volume: 293 mL Post void bladder volume: 148 mL There is a large lobular exophytic mass arising from the posterior bladder wall measuring at least 2.7 cm. This probably has a larger base. IMPRESSION: Exophytic mass arising from the posterior bladder wall. Significant postvoid residual. Reviewed, Interpreted and Dictated by Joaquin Steel MD Transcribed by Mariano Miguel Authenticated and [facility]
== END ==
PROVIDERS: PCP Internal Medicine; Visit Provider Internal Medicine
DX: R94.4 Abnormal results of kidney function studies (principal)
CPT/HCPCS: 76770; 76857

== ENCOUNTER 2022-01-12 16:00 | Outpatient (RCR) | payer MEDICARE, SELFPAY | END 2022-01-30 10:30 | disposition home or self-care (01) | LOC: PT.CARL 16:00 | PROVIDERS: PCP Internal Medicine; Visit Provider Orthopaedic Surgery | DX: M17.11 Unilateral primary osteoarthritis, right knee (principal); Z96.651 Presence of right artificial knee joint | CPT/HCPCS: 97010; 97014; 97110; 97140; 97163; 97164; G0283 ==

== ENCOUNTER 2023-09-03 11:23 | Outpatient (CLI) | payer MEDICARE, SELFPAY ==
--- NOTE | 2023-09-03 11:32 | XR_ITS ---
FINAL REPORT CLINICAL HISTORY: FATIGUE,SOA x 1 week cough x 5 weeks FINDINGS: 2 views of the chest were obtained . The heart is normal in size. The mediastinum is within normal limits. The lungs are clear. There is no pneumothorax. Osseous structures are unremarkable. IMPRESSION: No acute cardiopulmonary process. Reviewed, Interpreted and Dictated by Joaquin Steel MD Transcribed by Sada Turcios Authenticated and [facility]
--- NOTE | 2023-09-03 12:10 | ECG_ITS ---
APPROVED REPORT Exam: Resting ECG HR:63 bpm ECG Measurements Heart Rate 63 AXES ME 168 P 43 QRSd 97 QRS 81 QT 370 T 68 QTc 377 Conclusion SINUS RHYTHM NORMAL ECG UNCONFIRMED REPORT Electronically signed by : Jesus Lehman MD 09/03/2023 13:53:21
[2023-09-03 12:18] LABS: Alanine Aminotransferase 26 U/L (12-78); Albumin/Globulin Ratio 1.4 (1.1-1.8); Alkaline Phosphatase 75 U/L (38-126); Anion Gap 8.5 mEq/L (5-15); Aspartate Amino Transferase 27 U/L (17-59); Bilirubin,Total 0.6 mg/dl (0.2-1.3); Blood Urea Nitrogen 20 mg/dl (9-20); Calcium 9.3 mg/dl (8.4-10.2); Carbon Dioxide 33 mmol/L (22.0-30.0); Chloride 103 mmol/L (98-107); Chol/HDL Ratio 3.5 (1-3.5); Cholesterol 166 mg/dl (140-200); Estimated Glomerular Filt Rate 54 ml/min (>60); GFR (African American) 65 ML/MIN (>60); Globulin 2.9 g/dL (1.3-3.2); Glucose 105 mg/dl (74-100); HDL Cholesterol 48 mg/dl (40-60); Potassium 4.5 mmoL/L (3.5-5.1); Sodium 140 mmol/L (136-145); Total Protein,Serum 6.9 g/dl (6.3-8.2); Triglycerides 99 mg/dl (30-150); VLDL Cholesterol 20 mg/dL (0-40)
[2023-09-03 12:28] LABS: Direct LDL Cholesterol 92.09 mg/dL (100-129)
[2023-09-03 12:50] LABS: Prostate Specific Ag Screen 1.1 ng/ml (0.0-4.0)
[2023-09-03 13:05] LABS: Basophils # 0.1 K/mm3 (0-0.2); Basophils % 0.5 % (0.1-2.0); Eosinophils # 0.1 K/mm3 (0.0-0.4); Eosinophils % 0.9 % (0.1-12.0); Hematocrit 46.3 % (42.0-52.0); Hemoglobin 14.9 g/dL (14.1-18.0); Lymphocytes # 1.3 K/mm3 (0.7-4.5); Lymphocytes % 13.5 % (10-50); Mean Corpuscular HGB Conc 32.2 g/dL (31.8-35.4); Mean Corpuscular Hemoglobin 32.4 pg (27.0-31.2); Mean Corpuscular Volume 100.6 fl (80-94); Mean Platelet Volume 8.8 fl (7.4-10.4); Monocytes # 0.6 K/mm3 (0.1-1.0); Monocytes % 6.2 % (1.7-9.3); Neutrophils # 7.6 K/mm3 (1.8-7.8); Neutrophils % 78.9 % (37.0-80.0); Platelet Count 207 K/mm3 (142-424); Red Blood Count 4.61 M/mm3 (4.60-6.20); Red Cell Distribution Width 13.6 % (11.5-17.5); White Blood Count 9.6 K/mm3 (4.8-10.8)
[2023-09-04 13:23] LABS: Thyroid Stimulating Hormone 0.98 uIU/mL (0.465-4.68)
== END 2023-09-03 23:59 | disposition home or self-care (01) ==
LOC: RAD 11:25
PROVIDERS: PCP Internal Medicine; Visit Provider Internal Medicine
DX: R06.00 Dyspnea, unspecified (principal); I10 Essential (primary) hypertension; E78.5 Hyperlipidemia, unspecified; R53.83 Other fatigue; Z12.5 Encounter for screening for malignant neoplasm of prostate; R05.9 Cough, unspecified
CPT/HCPCS: 36415; 71046; 80053; 80061; 84443; 85025; 93005; G0103

== ENCOUNTER 2024-09-10 20:35 | Outpatient (CLI) | payer MEDICARE, SELFPAY | END 2024-09-10 23:59 | disposition home or self-care (01) | LOC: LAB.DROPOF 20:38 | PROVIDERS: PCP Internal Medicine; Visit Provider Family Medicine | DX: Z11.2 Encounter for screening for other bacterial diseases (principal) | CPT/HCPCS: 87070 ==